=== PATIENT | female | born 2000 | race Two or more races ===

== ENCOUNTER 2022-04-02 13:44 | Emergency (ER) | payer MEDICAID, OTHER ==
[~2022-04-02] VITALS: Ht 165.1 cm; Wt 105.0 kg
[2022-04-02 13:56] VITALS: BP 170/98
[2022-04-02 14:12] LABS: Basophils # (auto) 0.1 10 ^3/uL (0-0.2); Eosinophils # (auto) 0.2 10 ^3/uL (0-0.8); Eosinophils % (auto) 1.7 % (0.0-7.0); Hematocrit 42.4 % (36.0-46.0); Hemoglobin 14.2 g/dL (12.2-16.2); Lymphocytes # (auto) 2.2 10 ^3/uL (0.4-5.4); Lymphocytes % (auto) 24.4 % (10.0-50.0); Mean Corpuscular Hemoglobin 28.5 pg (28.0-32.0); Mean Corpuscular Hgb Conc. 33.5 g/dL (32.0-36.0); Monocytes # (auto) 0.5 10 ^3/uL (0-1.3); Monocytes % (auto) 5.4 % (0.0-12.0); Neutrophils # (auto) 6.1 10 ^3/uL (1.6-8.6); Neutrophils % (auto) 67.5 % (37.0-80.0); Nucleated Red Blood Cells % 0.1 %; Red Blood Cells 4.99 10^6/uL (4.0-5.20); Red Cell Distribution Width 12.7 % (11.8-14.3); White Blood Cell 9.1 10^3/uL (4.4-10.8)
[2022-04-02 14:27] LABS: Calcium 9.7 mg/dL (8.5-10.1); Potassium 4.5 mmol/L (3.5-5.1)
[2022-04-02 14:30] LABS: BUN/Creatinine Ratio 14.3; Bilirubin, Total 0.4 mg/dL (0.2-1.0); Total Protein 7.7 g/dL (6.4-8.2)
[2022-04-02] MEDS ORDERED: ASPirin 325 MG TAB PO ONE (14:45)
[2022-04-02 15:24] LABS: Urine Bacteria NONE SEEN /hpf (None Seen); Urine Blood Negative /uL (Negative); Urine Specific Gravity 1.008 (1.001-1.035); Urine WBC <1 /hpf (0 - 5)
== END 2022-04-02 23:04 | disposition home or self-care (01) ==
LOC: ER 13:44
DX: R07.89 Other chest pain (principal); F41.9 Anxiety disorder, unspecified
CPT/HCPCS: 36415; 80053; 81001; 84484; 85025; 93005

== ENCOUNTER 2024-02-11 16:00 | Observation (INO) | payer SELFPAY ==
[2024-02-11] MEDS ORDERED: PREN-96 PO (17:23)
== END 2024-02-11 17:32 | disposition home or self-care (01) ==
LOC: LDRP 16:00 → UNDOADMOB 16:00 → LDRP 16:17 → UNDODISOB 17:32
PROVIDERS: ADMIT Obstetrics & Gynecology; ATTEND Obstetrics & Gynecology
DX: O24.419 Gestational diabetes mellitus in pregnancy, unspecified control (principal); Z3A.30 30 weeks gestation of pregnancy
CPT/HCPCS: 59025; 81002; 82962; 94760; G0378

== ENCOUNTER 2024-02-18 16:00 | Observation (INO) | payer MEDICAID ==
[~2024-02-18] VITALS: Ht 165.1 cm; Wt 107.5 kg
[~2024-02-18 16:00] MED LIST: PREN-96 PO
== END 2024-02-18 16:52 | disposition home or self-care (01) ==
LOC: LDRP 16:00
PROVIDERS: ADMIT Obstetrics & Gynecology; ATTEND Obstetrics & Gynecology
DX: O24.419 Gestational diabetes mellitus in pregnancy, unspecified control (principal); Z3A.31 31 weeks gestation of pregnancy
CPT/HCPCS: 59025; 81002; 82948; 94760; G0378

== ENCOUNTER 2024-02-25 15:58 | Observation (INO) | payer SELFPAY | END 2024-02-25 17:25 | disposition home or self-care (01) | LOC: UNDOADMOB 15:58 → LDRP 15:58 → UNDODISOB 17:25 | PROVIDERS: ADMIT Obstetrics & Gynecology; ATTEND Obstetrics & Gynecology | DX: O24.419 Gestational diabetes mellitus in pregnancy, unspecified control (principal); Z3A.32 32 weeks gestation of pregnancy | CPT/HCPCS: 59025; 76818; 81002; 82948; 82962; G0378 ==

== ENCOUNTER 2024-03-03 16:00 | Observation (INO) | payer MEDICAID | END 2024-03-03 17:38 | disposition home or self-care (01) | LOC: LDRP 16:00 → UNDOADMOB 16:00 → LDRP 16:07 → UNDODISOB 17:38 | PROVIDERS: ADMIT Obstetrics & Gynecology; ATTEND Obstetrics & Gynecology | DX: O24.419 Gestational diabetes mellitus in pregnancy, unspecified control (principal); Z3A.33 33 weeks gestation of pregnancy | CPT/HCPCS: 59025; 76818; 81002; 82948; 94760; G0378 ==

== ENCOUNTER 2024-03-10 16:00 | Observation (INO) | payer MEDICAID | END 2024-03-10 18:06 | disposition home or self-care (01) | LOC: UNDOADMOB 16:00 → LDRP 16:00 → UNDODISOB 18:06 | PROVIDERS: ADMIT Obstetrics & Gynecology; ATTEND Obstetrics & Gynecology | DX: O24.419 Gestational diabetes mellitus in pregnancy, unspecified control (principal); Z3A.34 34 weeks gestation of pregnancy | CPT/HCPCS: 59025; 76818; 81002; 82948; 82962; 94760; G0378 ==

== ENCOUNTER 2024-03-17 16:00 | Observation (INO) | payer MEDICAID | END 2024-03-17 19:01 | disposition home or self-care (01) | LOC: UNDOADMOB 16:00 → LDRP 16:00 → UNDODISOB 19:01 | PROVIDERS: ADMIT Obstetrics & Gynecology; ATTEND Obstetrics & Gynecology | DX: O24.419 Gestational diabetes mellitus in pregnancy, unspecified control (principal); Z3A.35 35 weeks gestation of pregnancy | CPT/HCPCS: 59025; 76805; 76818; 81002; 82948; 82962; 94760; G0378 ==

== ENCOUNTER 2024-03-24 06:08 | Observation (INO) | payer MEDICAID ==
[2024-03-24 17:11] LABS: Basophils # (auto) 0 10 ^3/uL (0-0.2); Basophils % (auto) 0.7 % (0.0-2.0); Eosinophils # (auto) 0.1 10 ^3/uL (0-0.8); Eosinophils % (auto) 1.3 % (0.0-7.0); Hematocrit 34.9 % (36.0-46.0); Hemoglobin 12.1 g/dL (12.2-16.2); Lymphocytes # (auto) 1.7 10 ^3/uL (0.4-5.4); Lymphocytes % (auto) 23.5 % (10.0-50.0); Mean Corpuscular Hemoglobin 30.9 pg (28.0-32.0); Mean Corpuscular Hgb Conc. 34.7 g/dL (32.0-36.0); Mean Corpuscular Volume 89.2 fL (80.0-100.0); Monocytes # (auto) 0.3 10 ^3/uL (0-1.3); Neutrophils # (auto) 5.2 10 ^3/uL (1.6-8.6); Neutrophils % (auto) 70.5 % (37.0-80.0); Nucleated Red Blood Cells % 0.1 %; Platelet Count (auto) 199 10^3/uL (140-450); Red Blood Cells 3.91 10^6/uL (4.0-5.20); White Blood Cell 7.3 10^3/uL (4.4-10.8)
[2024-03-26 07:07] LABS: RPR Non Reactive (Non Reactive)
== END 2024-03-24 18:21 | disposition home or self-care (01) ==
LOC: UNDOADMOB 16:05 → LDRP 16:05 → UNDODISOB 18:21
PROVIDERS: ADMIT Obstetrics & Gynecology; ATTEND Obstetrics & Gynecology
DX: O24.419 Gestational diabetes mellitus in pregnancy, unspecified control (principal); Z3A.36 36 weeks gestation of pregnancy
CPT/HCPCS: 36415; 59025; 76818; 81002; 82948; 82962; 83036; 85025; 86592; 94760; G0378

== ENCOUNTER 2024-03-31 16:05 | Observation (INO) | payer MEDICAID | END 2024-03-31 17:41 | disposition home or self-care (01) | LOC: LDRP 16:05 | PROVIDERS: ADMIT Obstetrics & Gynecology; ATTEND Obstetrics & Gynecology | DX: O24.419 Gestational diabetes mellitus in pregnancy, unspecified control (principal); Z3A.37 37 weeks gestation of pregnancy | CPT/HCPCS: 59025; 76818; 81002; 82948; 82962; 94760; G0378 ==

== ENCOUNTER 2024-04-06 06:27 | Observation (INO) | payer MEDICAID | END 2024-04-06 12:05 | disposition home or self-care (01) | LOC: LDRP 10:06 | PROVIDERS: ADMIT Obstetrics & Gynecology; ATTEND Obstetrics & Gynecology | DX: O24.419 Gestational diabetes mellitus in pregnancy, unspecified control (principal); Z3A.38 38 weeks gestation of pregnancy; Z79.899 Other long term (current) drug therapy | CPT/HCPCS: 59025; 76818; 81002; 82948; 82962; G0378 ==

== ENCOUNTER 2024-04-13 08:27 | Observation (INO) | payer MEDICAID | END 2024-04-13 10:53 | disposition home or self-care (01) | LOC: LDRP 08:27 | PROVIDERS: ADMIT Obstetrics & Gynecology; ATTEND Obstetrics & Gynecology | DX: O24.419 Gestational diabetes mellitus in pregnancy, unspecified control (principal); O62.9 Abnormality of forces of labor, unspecified; Z3A.39 39 weeks gestation of pregnancy | CPT/HCPCS: 59025; 76818; 81002; 82948; 82962; 94760; G0378 ==

== ENCOUNTER 2024-04-14 16:22 | Inpatient (IN) | payer MEDICAID ==
[~2024-04-14] VITALS: Ht 165.1 cm; Wt 104.3 kg
[2024-04-14] MEDS ORDERED: BUTORPHANOL TARTRATE 2 MG/1 ML VIAL IV PRN ×2 (17:15)
[2024-04-14] MEDS ORDERED: LIDOCAINE 2%HCL (LOCAL ANESTH.) INJ 20ML MDV IJ PRN (17:15)
[2024-04-14] MEDS ORDERED: LACTATED RINGER'S 1,000 ML IV SCH (17:15)
[2024-04-14] MEDS: PENICILLIN G POT 5MIL/D5 50ML 50 ML IV ONE (17:41)
[2024-04-14] MEDS: PHISODERM TOP SOLN 240ML BTL TOP PRN (17:46)
[2024-04-14] MEDS: WITCH HAZEL-GLYCERIN PAD TOP PRN (17:46)
[2024-04-14] MEDS: DERMOPLAST 60ML BOTTLE TOP PRN (17:46)
[2024-04-14 18:09] LABS: Basophils # (auto) 0 10 ^3/uL (0-0.2); Basophils % (auto) 0.2 % (0.0-2.0); Eosinophils # (auto) 0.1 10 ^3/uL (0-0.8); Eosinophils % (auto) 0.4 % (0.0-7.0); Hematocrit 38.3 % (36.0-46.0); Hemoglobin 12.9 g/dL (12.2-16.2); Lymphocytes # (auto) 1.4 10 ^3/uL (0.4-5.4); Lymphocytes % (auto) 11.9 % (10.0-50.0); Mean Corpuscular Hemoglobin 29.8 pg (28.0-32.0); Mean Corpuscular Hgb Conc. 33.6 g/dL (32.0-36.0); Mean Corpuscular Volume 88.7 fL (80.0-100.0); Monocytes # (auto) 0.5 10 ^3/uL (0-1.3); Monocytes % (auto) 3.8 % (0.0-12.0); Neutrophils % (auto) 83.7 % (37.0-80.0); Platelet Count (auto) 212 10^3/uL (140-450); Red Blood Cells 4.31 10^6/uL (4.0-5.20)
[2024-04-14 18:22] LABS: Urine Bacteria FEW /hpf (None Seen); Urine Blood 1+ /uL (Negative); Urine Budding Yeast OCCASIONAL /hpf (None Seen); Urine Clarity Clear (Clear); Urine Color Light-Yellow (Yellow); Urine Mucus FEW (None Seen); Urine Protein, UAD Negative (Negative); Urine Specific Gravity 1.011 (1.001-1.035); Urine Urobilinogen Normal (Negative); Urine WBC 5 /hpf (0 - 5); Urine pH 6.5 (5.0-9.0)
[2024-04-14 18:26] LABS: Amphetamine Screen, Urine Neg (NEGATIVE); Benzodiazephine Screen, Urine Neg (NEGATIVE)
[2024-04-14 18:27] LABS: Barbiturate Scree,Urine Neg (NEGATIVE); Cannabinoid Screen, Urine Neg (NEGATIVE); Cocaine Screen, Urine Neg (NEGATIVE); Opiate Scree,Urine Neg (NEGATIVE); Phencyclidine Screen, Urine Neg (NEGATIVE)
[2024-04-14 18:29] LABS: Alanine Aminotransferase 10 U/L (7-40); Albumin 3.9 g/dL (3.2-4.8); Alkaline Phosphatase 198 U/L (46-116); Anion Gap 10 (5-15); Aspartate Aminotransferase < 8 U/L (13-40); BUN/Creatinine Ratio 8.8 (10.0-20.0); Bilirubin, Total 0.5 mg/dL (0.2-1.0); Blood Urea Nitrogen 5 mg/dL (9-23); Calcium 9.7 mg/dL (8.7-10.4); Carbon Dioxide 19 mmol/L (20-31); Chloride 108 mmol/L (98-107); Glucose 103 mg/dL (74-106); Potassium 3.8 mmol/L (3.5-5.1); Sodium 137 mmol/L (136-145); Total Protein 6.3 g/dL (5.7-8.2)
[2024-04-14 18:43] LABS: INR 0.93 (0.9-1.15); Partial Thromboplastin Time 24.6 SEC (24.5-34.5); Prothrombin Time 9.9 sec (9.3-11.8)
[2024-04-14] MEDS ORDERED: MINERAL OIL TOPICAL 10ml TOP PRN (19:30)
[2024-04-14] MEDS ORDERED: NALBUPHINE HCL 10 MG/1ml INJECTION IV PRN (19:30)
[2024-04-14] MEDS ORDERED: fentaNYL CITRATE 100 MCG/2 ML VL IV ONE (20:00)
[2024-04-14] MEDS: PENICILLIN G POTASSIUM 2,500,000 UNITS in D5W 5% 50 ML IV SCH (21:12)
[2024-04-14] MEDS ORDERED: ACETAMINOPHEN 325 MG TAB PO PRN (22:00)
[2024-04-14] MEDS ORDERED: ONDANSETRON ODT 4 MG TAB PO PRN (22:00)
[2024-04-14] MEDS ORDERED: METHYLERGONOVINE MALEATE 0.2 MG/ML AMP IM ONE (22:09)
[2024-04-14] MEDS: LACT. RINGERS/OXYTOCIN 20UNITS 500 ML IV ONE ×2 (22:10→22:11)
[2024-04-14] MEDS: IBUPROFEN 600 MG TAB PO PRN (22:16)
[2024-04-14] MEDS: ceFAZolin 2 GM/D5W50ml 50 ML IV ONE (22:48)
[2024-04-14] MEDS: METHYLERGONOVINE MALEATE 0.2 MG/ML AMP IM ONE (22:48)
[2024-04-15 03:25] VITALS: BP 122/69; PULSE 95; RESP 16; TEMP 98.1; O2SAT 98
[2024-04-15 05:12] LABS: Basophils # (auto) 0.1 10 ^3/uL (0-0.2); Basophils % (auto) 0.7 % (0.0-2.0); Eosinophils # (auto) 0.1 10 ^3/uL (0-0.8); Eosinophils % (auto) 0.3 % (0.0-7.0); Hematocrit 37.8 % (36.0-46.0); Hemoglobin 12.9 g/dL (12.2-16.2); Lymphocytes # (auto) 2.3 10 ^3/uL (0.4-5.4); Lymphocytes % (auto) 13.2 % (10.0-50.0); Mean Corpuscular Hemoglobin 30.6 pg (28.0-32.0); Mean Corpuscular Hgb Conc. 34.2 g/dL (32.0-36.0); Mean Corpuscular Volume 89.3 fL (80.0-100.0); Neutrophils # (auto) 13.7 10 ^3/uL (1.6-8.6); Neutrophils % (auto) 79.8 % (37.0-80.0); Nucleated Red Blood Cells % 0.1 %; Platelet Count (auto) 226 10^3/uL (140-450); Red Blood Cells 4.23 10^6/uL (4.0-5.20); Red Cell Distribution Width 13.7 % (11.8-14.3); White Blood Cell 17.2 10^3/uL (4.4-10.8)
[2024-04-15] MEDS ORDERED: IBUP-1456 PO ×2 (06:58→23:43)
[2024-04-15] MEDS ORDERED: DOCU-94 PO (06:58)
[2024-04-15] MEDS ORDERED: HYDR-4072 PO (06:58)
[2024-04-15] MEDS ORDERED: GUM (CHEWING) 1 GUM CHEW CHEW ONE (07:00)
[2024-04-15] MEDS ORDERED: LACT. RINGERS/OXYTOCIN 20UNITS 1,000 ML IV ONE (07:00)
[2024-04-15] MEDS ORDERED: ceFAZolin 1GM/50ML 50 ML IV SCH (07:00)
[2024-04-15] MEDS ORDERED: ONDANSETRON HCL 4 MG/2 ML VIAL IV PRN (07:00)
[2024-04-15 07:05] VITALS: BP 119/72; PULSE 95; RESP 18; TEMP 97.7; O2SAT 98
[2024-04-15 11:30] VITALS: BP 108/62; PULSE 88; RESP 18; TEMP 97.5; O2SAT 97
[2024-04-15 14:30] VITALS: BP 120/63; PULSE 98; RESP 18; TEMP 97.6; O2SAT 97
[2024-04-15 19:00] VITALS: BP 130/75; PULSE 88; RESP 16; TEMP 97.7; O2SAT 97
[2024-04-15 21:07] LABS: Basophils # (auto) 0.1 10 ^3/uL (0-0.2); Basophils % (auto) 0.6 % (0.0-2.0); Eosinophils # (auto) 0.2 10 ^3/uL (0-0.8); Eosinophils % (auto) 1.7 % (0.0-7.0); Hematocrit 34.2 % (36.0-46.0); Hemoglobin 11.5 g/dL (12.2-16.2); Lymphocytes # (auto) 2.3 10 ^3/uL (0.4-5.4); Lymphocytes % (auto) 24.6 % (10.0-50.0); Mean Corpuscular Hemoglobin 30.1 pg (28.0-32.0); Mean Corpuscular Hgb Conc. 33.6 g/dL (32.0-36.0); Mean Corpuscular Volume 89.5 fL (80.0-100.0); Monocytes # (auto) 0.5 10 ^3/uL (0-1.3); Monocytes % (auto) 4.9 % (0.0-12.0); Neutrophils # (auto) 6.3 10 ^3/uL (1.6-8.6); Neutrophils % (auto) 68.2 % (37.0-80.0); Platelet Count (auto) 205 10^3/uL (140-450); Red Blood Cells 3.82 10^6/uL (4.0-5.20); Red Cell Distribution Width 14.1 % (11.8-14.3); White Blood Cell 9.2 10^3/uL (4.4-10.8)
[2024-04-15 23:25] VITALS: BP 124/70; PULSE 95; RESP 14; TEMP 98.4; O2SAT 97
[2024-04-16 03:16] VITALS: BP 123/65; PULSE 81; RESP 16; TEMP 98.3; O2SAT 95
[2024-04-16 08:06] LABS: RPR Non Reactive (Non Reactive)
[2024-04-17 04:06] LABS: Chlamydia Trachomatis, NAA Negative (Negative); Neisseria gonorrhoeae, NAA Negative (Negative)
== END 2024-04-16 12:31 | disposition home or self-care (01) | DRG 560 ==
LOC: LDRP 16:22 → OBSVTOIN 17:10 → LDRP 17:22
PROVIDERS: ADMIT Obstetrics & Gynecology; ATTEND Obstetrics & Gynecology
PROC: 10E0XZZ Delivery of Products of Conception, External Approach (ICD-10-PCS; principal; 2024-04-14)
PROC: 0HQ9XZZ Repair Perineum Skin, External Approach (ICD-10-PCS; 2024-04-14)
PROC: 0UQMXZZ Repair Vulva, External Approach (ICD-10-PCS; 2024-04-14)
DX: O24.420 Gestational diabetes mellitus in childbirth, diet controlled (principal); Z37.0 Single live birth; R71.0 Precipitous drop in hematocrit; O70.0 First degree perineal laceration during delivery; O71.82 Other specified trauma to perineum and vulva; Z3A.39 39 weeks gestation of pregnancy
CPT/HCPCS: 36415; 59025; 59409; 76805; 80053; 80307; 81001; 81002; 85025; 85610; 85730; 86592; 86803; 86850; 86900; 86901; 94760; 96360; 96361; 96365; 96366; 96372; G0378; J2540; J2590; J7060